=== PATIENT | female | born 1960 | race Two or more races ===

== ENCOUNTER 2019-03-06 01:41 | Emergency (ER) | payer MEDICAID ==
[~2019-03-06] VITALS: Ht 167.6 cm; Wt 86.2 kg
[2019-03-06] MEDS ORDERED: MORPHINE SULFATE INJ 2 MG/ML DISP.SYRIN IV ONE ×2 (02:00→07:00)
[2019-03-06] MEDS ORDERED: IV NS 0.9% 1,000 ML BAG IV ONE (02:00)
[2019-03-06] MEDS ORDERED: ONDANSETRON HCL/PF 4 MG/2 ML VIAL IVP ONE (02:00)
[2019-03-06] MEDS ORDERED: MORPHINE SULFATE INJ 2 MG/ML DISP.SYRIN ONE ×2 (02:15→06:57)
[2019-03-06] MEDS ORDERED: ONDANSETRON HCL/PF 4 MG/2 ML VIAL ONE ×2 (02:15→07:02)
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
[2019-03-06 02:22] LABS: BASOPHILS # (AUTO) 0.1 /CMM (0.0-0.2); BASOPHILS % (AUTO) 0.9 % (0.0-2.0); EOSINOPHILS % (AUTO) 0.1 % (0.0-6.0); HEMATOCRIT 40 % (33-45); HEMOGLOBIN 13.5 g/dL (11.5-14.8); LYMPHOCYTES # (AUTO) 1.3 /CMM (0.8-4.8); LYMPHOCYTES % (AUTO) 11.2 % (20.0-44.0); MEAN CORPUSCULAR HGB CONC 34 g/dl (31.0-36.0); MEAN CORPUSCULAR VOLUME 82 fL (82-100); MONOCYTES # (AUTO) 0.5 /CMM (0.1-1.30); MONOCYTES % (AUTO) 4.1 % (2.0-12.0); NEUTROPHILS # (AUTO) 9.9 /CMM (1.8-8.9); NEUTROPHILS % (AUTO) 83.7 % (43.0-81.0); PLATELET COUNT (AUTO) 250 /CMM (150-450); RED BLOOD CELL COUNT(AUTO) 4.87 MIL/uL (4.0-5.2); WHITE BLOOD COUNT (AUTO) 11.9 K/uL (4.3-11.0)
[2019-03-06 02:36] LABS: ALBUMIN 3.6 g/dL (3.4-5.0); BILIRUBIN,DIRECT 0.1 mg/dL (0.0-0.2); BILIRUBIN,TOTAL 0.5 mg/dL (0.2-1.0); CALCIUM, SERUM 9.1 mg/dL (8.5-10.1); CREATININE 0.7 mg/dL (0.6-1.3); TOTAL PROTEIN, SERUM 7.5 g/dL (6.4-8.2)
--- NOTE | 2019-03-06 02:44 | NUR ---
US TECH AT THE BED SIDE
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
[2019-03-06 03:43] LABS: APPEARANCE,URINE Clear (CLEAR); BILIRUBIN,URINE Negative (NEGATIVE); BLOOD, URINE Negative Ery/uL (NEGATIVE); COLOR,URINE Yellow (YELLOW); KETONES,URINE Negative (NEGATIVE); LEUKOCYTE ESTERASE ,URINE Negative (NEGATIVE); NITRITE, URINE Negative (NEGATIVE); PH,URINE 6.5 (5.0-8.0); PROTEIN,URINE Negative (NEGATIVE); UGLUCOSE Negative (NEGATIVE); UROBILINOGEN,URINE 0.2 EU/dL (0.2)
[2019-03-06] MEDS ORDERED: METRONIDAZOLE 500MG/ NS 100ML 100 ML IV ONE (04:26)
[2019-03-06] MEDS ORDERED: FLAGYL/NS RTU 500 MG/100 ML PIGGYBACK IV ONE (04:30)
[2019-03-06] MEDS ORDERED: CIPROFLOXACIN IV RTU 400 MG in PREMIX 1 EA IV SCH (04:30)
--- NOTE | 2019-03-06 05:00 | NUR ---
ADDENDUM: Intravenous End Time Documentation: Flagyl 500 mg IVPB: start time: 0500 AM ; end time:0530 AM : IV site: RAC # 20; Port # 1 Ciprofloxacin 400 mg (pre-mix bag) start time: 0515 AM end time: 0615 AM IV site: RAC # 20; Port # 2
[2019-03-06] MEDS ORDERED: CIPROFLOXACIN IV RTU 200 ML IV ONE (05:26)
[2019-03-06] MEDS ORDERED: ONDANSETRON HCL/PF - ER 4 MG/2 ML VIAL IV ONE (07:00)
--- NOTE | 2019-03-06 07:13 | NUR ---
PT IS LEAVING THE HOSPITAL AND D/C HOME AMA . DR FAYE CALERO SPOKE TO THE PT AND THE FAMILY AND EXPLAINED THE RISKS. PT RECEIVED HER BOTH IV ATBs ORDERED BY . REQUESTED PAIN AND NAUSEA MED. SPOKE TO DR HERNÁNDEZ WITH NEW ORDERS FOR MORPHINE AND ZOFRAN. MEDICATED ORDERED. VERBAL AND WRITTEN INSTRUCTIONS AND RX GIVEN TO THE PT/ FAMILY WITH UNDERSTANDING. IV LINE D/C'd.
[2019-03-06 07:22] VITALS: BP 127/72
--- NOTE | 2019-03-17 19:13 | NUR ---
LATE ENTRY FOR 03/06/19 END INFUSION FOR FLAGYL IV: 03/06/19 @ 0530 END INFUSION FOR CIPRO IV 03/06/19 @ 0615 Addendum: 03/17/19 at 1916 by ANTHNOY THIS IS A LATE EDOCUMENTATION FOR 03/10/19
== END 2019-03-06 07:25 | disposition left against medical advice (07) ==
LOC: ER 01:44
DX: K57.32 Diverticulitis of large intestine without perforation or abscess without bleeding (principal); D25.9 Leiomyoma of uterus, unspecified; R19.7 Diarrhea, unspecified; I10 Essential (primary) hypertension
CPT/HCPCS: 36415; 74176; 76856; 80048; 80076; 81001; 83605; 85025; 85730; 87040 ×2; 87077; 87081; 96361; 96365; 96375; 96376; 99284; A4216; J0744 ×2; J2270 ×2; J2405 ×2; J3490; J7030 ×2; J7050; 81000-TC